=== PATIENT | female | born 1975 | race Two or more races ===

== ENCOUNTER 2023-09-20 18:53 | Inpatient (IN) | payer OTHER ==
[~2023-09-20] VITALS: Ht 157.5 cm; Wt 60.3 kg
[2023-09-20] MEDS ORDERED: ONDANSETRON HCL/PF 4 MG/2 ML VIAL ONE ×2 (19:46→21:24)
[2023-09-20] MEDS ORDERED: FAMOTIDINE/PF INJ 20 MG/2 ML VIAL IV ONE (19:46)
[2023-09-20] MEDS ORDERED: PHENOBARBITAL SODIUM 130 MG/ML VIAL ONE ×2 (19:46→21:24)
[2023-09-20 19:55] LABS: BASOPHILS % (AUTO) 0.3 % (0.0-2.0); EOSINOPHILS % (AUTO) 0.1 % (0.0-6.0); HEMATOCRIT 42 % (33-45); HEMOGLOBIN 13.9 g/dL (11.5-14.8); LYMPHOCYTES # (AUTO) 0.6 K/uL (0.8-4.8); LYMPHOCYTES % (AUTO) 5.6 % (20.0-44.0); MEAN CORPUSCULAR HEMOGLOBIN 33 PG (26.0-33.0); MEAN CORPUSCULAR HGB CONC 33 g/dl (31.0-36.0); MEAN CORPUSCULAR VOLUME 100 fL (82-100); MONOCYTES # (AUTO) 0.5 K/uL (0.1-1.30); MONOCYTES % (AUTO) 5.1 % (2.0-12.0); NEUTROPHILS # (AUTO) 9.3 K/uL (1.8-8.9); NEUTROPHILS % (AUTO) 88.9 % (43.0-81.0); PLATELET COUNT (AUTO) 127 K/uL (150-450); RED BLOOD CELL COUNT(AUTO) 4.23 MIL/uL (4.0-5.2); RED CELL DISTRIBUTION WIDTH 16.4 % (11.5-15.0); WHITE BLOOD COUNT (AUTO) 10.4 K/uL (4.3-11.0)
[2023-09-20] MEDS: FAMOTIDINE/PF INJ 20 MG/2 ML VIAL IV ONE (19:55)
[2023-09-20] MEDS: ONDANSETRON HCL/PF 4 MG/2 ML VIAL IVP ONE (19:55)
[2023-09-20] MEDS: PHENOBARBITAL SODIUM 130 MG/ML VIAL IV ONE ×2 (19:55→21:33)
[2023-09-20] MEDS: IV NS 0.9% 1,000 ML BAG IV ONE (19:55)
[2023-09-20 20:39] LABS: ALBUMIN 4.7 g/dL (3.4-5.0); BILIRUBIN,DIRECT 0.3 mg/dL (0.0-0.2); BILIRUBIN,TOTAL 0.7 mg/dL (0.2-1.0); CREATININE 0.8 mg/dL (0.6-1.3); POTASSIUM 3.5 mmol/L (3.5-5.1); TOTAL PROTEIN, SERUM 8.4 g/dL (6.4-8.2)
[2023-09-20] MEDS: Thiamine 100 MG in IV D5W 50 ML IV SCH (21:07)
[2023-09-20 21:19] LABS: SITE, VBG Right Radial; VBG BASE EXCESS -16.4 mmol/L (-3-3); VBG COHb 0.3 %; VBG MetHb 0.4 %; VBG O2Hb 96.6 %; VBG OXYGEN SATURATION 97.3 %; VBG PO2 109.9 mmHg (30-50); VBG TOTAL HEMOGLOBIN 13.6 G/dL (12.0-16.0); VENT MODE, VBG ROOM AIR
[2023-09-20 21:24] LABS: PHOSPHORUS 6.1 mg/dL (2.5-4.9)
[2023-09-20] MEDS: ONDANSETRON HCL/PF - ER 4 MG/2 ML VIAL IV ONE (21:33)
[2023-09-20] MEDS: IV D5/ 0.9% NACL 1,000 ML IV ONE (21:33)
[2023-09-20 21:34] LABS: LACTIC ACID 5.6 mmol/L (0.4-2.0)
[2023-09-20] MEDS ORDERED: ONDANSETRON HCL/PF 4 MG/2 ML VIAL IVP PRN (22:30)
[2023-09-20] MEDS ORDERED: ACETAMINOPHEN 325 MG TABLET PO PRN (22:30)
[2023-09-20] MEDS ORDERED: IV D5/0.45 NACL 1,000 ML IV PRN (22:30)
[2023-09-20] MEDS: PANTOPRAZOLE 40 MG VIAL IV SCH (23:21)
[2023-09-20 23:57] LABS: APPEARANCE,URINE SLIGHTLY CLOUDY (CLEAR); BILIRUBIN,URINE NEGATIVE (NEGATIVE); BLOOD, URINE NEGATIVE Ery/uL (NEGATIVE); COLOR,URINE YELLOW (YELLOW); KETONES,URINE 3+ mg/dL (NEGATIVE); LEUKOCYTE ESTERASE ,URINE NEGATIVE (NEGATIVE); NITRITE, URINE NEGATIVE (NEGATIVE); PH,URINE 5.5 (5.0-8.0); PREGNANCY TEST URINE QUAL NEGATIVE (NEGATIVE); PROTEIN,URINE NEGATIVE (NEGATIVE); UGLUCOSE 1+ mg/dL (NEGATIVE); UROBILINOGEN,URINE 0.2 EU/dL (0.2)
[2023-09-21] VITALS: BP 125/71; TEMP 98.2; O2SAT 98
[2023-09-21 00:07] LABS: ADD URINE CULTURE NO; BACTERIA,URINE Rare /HPF (None Seen); SQUAMOUS EPITHELIAL CELL,UR Few /HPF (None Seen); WBC,URINE 0-2 /HPF (0-3)
[2023-09-21] MEDS: IV D5/ 0.9% NACL 1,000 ML IV PRN (00:10)
[2023-09-21 00:12] LABS: CALCIUM, SERUM 7.2 mg/dL (8.5-10.1); CREATININE 0.8 mg/dL (0.6-1.3); POTASSIUM 4.1 mmol/L (3.5-5.1)
[2023-09-21] MEDS: QUETIAPINE FUMARATE 100 MG TABLET PO SCH (00:57)
[2023-09-21 04:00] VITALS: BP 113/71; TEMP 99; O2SAT 99
[2023-09-21] MEDS ORDERED: CHLORDIAZEPOXIDE HCL 25 MG CAPSULE PO SCH (05:00)
[2023-09-21] MEDS: CLONIDINE HCL 0.1 MG TABLET PO ONE (05:32)
[2023-09-21 07:10] LABS: BASOPHILS % (AUTO) 0.1 % (0.0-2.0); EOSINOPHILS % (AUTO) 0.4 % (0.0-6.0); HEMATOCRIT 34 % (33-45); HEMOGLOBIN 11.3 g/dL (11.5-14.8); LYMPHOCYTES # (AUTO) 0.5 K/uL (0.8-4.8); LYMPHOCYTES % (AUTO) 8.3 % (20.0-44.0); MEAN CORPUSCULAR HEMOGLOBIN 34 PG (26.0-33.0); MEAN CORPUSCULAR HGB CONC 33 g/dl (31.0-36.0); MEAN CORPUSCULAR VOLUME 101 fL (82-100); MONOCYTES # (AUTO) 0.5 K/uL (0.1-1.30); MONOCYTES % (AUTO) 7.1 % (2.0-12.0); NEUTROPHILS # (AUTO) 5.5 K/uL (1.8-8.9); NEUTROPHILS % (AUTO) 84.1 % (43.0-81.0); PLATELET COUNT (AUTO) 88 K/uL (150-450); RED BLOOD CELL COUNT(AUTO) 3.37 MIL/uL (4.0-5.2); RED CELL DISTRIBUTION WIDTH 15.6 % (11.5-15.0); WHITE BLOOD COUNT (AUTO) 6.5 K/uL (4.3-11.0)
[2023-09-21 07:25] LABS: CALCIUM, SERUM 7.5 mg/dL (8.5-10.1); CREATININE 0.8 mg/dL (0.6-1.3); MAGNESIUM 1.7 mg/dL (1.8-2.4); PHOSPHORUS 1.2 mg/dL (2.5-4.9); POTASSIUM 3.6 mmol/L (3.5-5.1)
[2023-09-21 08:00] VITALS: BP 101/68; TEMP 99; O2SAT 98
[2023-09-21] MEDS ORDERED: PANT40TA2 PO (08:43)
[2023-09-21] MEDS ORDERED: CLON0.1T PO (08:43)
[2023-09-21] MEDS ORDERED: MELA1TAB2 PO (08:43)
[2023-09-21] MEDS ORDERED: GABA600T12 PO (08:43)
[2023-09-21] MEDS ORDERED: PARO10TA86 PO (08:43)
[2023-09-21] MEDS ORDERED: AMPH10CA3 PO (08:43)
[2023-09-21] MEDS ORDERED: QUET25TA PO (08:43)
[2023-09-21] MEDS: PANTOPRAZOLE 40 MG TABLET.DR PO SCH (08:44)
[2023-09-21] MEDS: THIAMINE HCL 100 MG TABLET PO SCH (08:44)
[2023-09-21] MEDS: FOLIC ACID 1 MG TABLET PO SCH (08:44)
[2023-09-21 10:33] LABS: ANISOCYTOSIS 1+; BAND % (MANUAL) 3 % (0.0-5.0); BASOPHILS % (MANUAL) 0 % (0.0-2.0); EOSINOPHILS % (MANUAL) 0 % (0-4); LYMPHOCYTES % (MANUAL) 5 % (16-48); MONOCYTES % (MANUAL) 4 % (0-11.0); NEUTROPHILS % (MANUAL) 88 (42-76); PLATELET ESTIMATE DECREASED
[2023-09-21] MEDS: MAGNESIUM OXIDE 400 MG TABLET PO ONE (10:56)
[2023-09-21] MEDS ORDERED: MAGNESIUM OXIDE 400 MG TABLET PO SCH (11:00)
[2023-09-21] MEDS: IV NS 0.9% 1,000 ML IV SCH (11:06)
[2023-09-21 12:00] VITALS: BP 110/70; TEMP 98.4; O2SAT 99
[2023-09-21] MEDS: NEUTRA PHOS 1 POWD.PACKET PO ONE (12:36)
[2023-09-21 16:00] VITALS: BP 127/84; TEMP 98.7; O2SAT 98
[2023-09-21] MEDS: LORAZEPAM INJ 2 MG/ML VIAL IV PRN (17:33)
[2023-09-21 20:00] VITALS: BP 125/78; TEMP 98.6; O2SAT 98
[2023-09-22 04:00] VITALS: BP 128/80; TEMP 98.6; O2SAT 98
== END 2023-09-22 05:22 | disposition left against medical advice (07) | DRG 420 ==
LOC: ER 19:02 → TELE1 21:51 → MEDSG1 09-21 20:06
PROVIDERS: ADMIT Nurse Practitioner Acute Care; ATTEND Internal Medicine
DX: E11.10 Type 2 diabetes mellitus with ketoacidosis without coma (principal); E86.0 Dehydration; K31.84 Gastroparesis; E11.43 Type 2 diabetes mellitus with diabetic autonomic (poly)neuropathy; F41.9 Anxiety disorder, unspecified; Z88.8 Allergy status to other drugs, medicaments and biological substances; F10.10 Alcohol abuse, uncomplicated; R79.89 Other specified abnormal findings of blood chemistry; I10 Essential (primary) hypertension; Y90.9 Presence of alcohol in blood, level not specified
CPT/HCPCS: 36415; 36600; 80048-TC; 80061-TC; 80076-TC; 81001; 82803-TC; 83605-TC; 83690-TC; 83735-TC; 84100-TC; 84703-TC; 85025-TC; A4223; C9113; G0378; J2060; J2405; J2560; J3411; J3490; J7030; J7042; J7060

== ENCOUNTER 2024-05-31 23:01 | Emergency (ER) | payer OTHER ==
[~2024-05-31] VITALS: Ht 157.5 cm; Wt 63.5 kg
[~2024-05-31 23:01] MED LIST: AMPH10CA3 PO; CLON0.1T PO; GABA600T12 PO; MELA1TAB2 PO; PANT40TA2 PO; PARO10TA86 PO; QUET25TA PO
[2024-05-31] MEDS ORDERED: ONDANSETRON HCL/PF 4 MG/2 ML VIAL ONE (23:17)
[2024-05-31] MEDS: IV NS 0.9% 1,000 ML BAG IV ONE (23:30)
[2024-05-31] MEDS: ONDANSETRON HCL/PF 4 MG/2 ML VIAL IVP ONE (23:30)
[2024-05-31] MEDS ORDERED: ONDA4TAB5 PO (23:35)
[2024-06-01 01:30] VITALS: BP 128/74; TEMP 98.7; O2SAT 98
== END 2024-06-01 01:31 | disposition home or self-care (01) ==
LOC: ER 23:06
DX: F10.10 Alcohol abuse, uncomplicated (principal); R11.2 Nausea with vomiting, unspecified; F41.9 Anxiety disorder, unspecified; Z79.899 Other long term (current) drug therapy; Z88.8 Allergy status to other drugs, medicaments and biological substances
CPT/HCPCS: 99285; 96374; 96361; J2405; J7030